=== PATIENT | female | born 1965 | race Caucasian/White ===

== ENCOUNTER 2024-09-13 11:47 | Emergency (ER) | payer BC, SELFPAY ==
[2024-09-13] VITALS (9 sets, daily range): BP systolic 99–135; BP diastolic 52–71; PULSE 68–93; RESP 16–18; TEMP 36.9–37.8; O2SAT 92–96; BMI 38.2
--- NOTE | ~2024-09-13 | XR_ITS ---
EXAMINATION: XR CHEST CLINICAL INFORMATION: chest pain COMPARISON: None available. TECHNIQUE: Frontal view of the chest was obtained. FINDINGS: The lungs are expanded with a right parahilar soft tissue density overlying the hilum suggestive of mass or consolidation. Rest of the lungs are clear. The heart size and pulmonary vascularity is normal. There is moderate right para midline mid and lower dorsal spine spondylosis. XR/XR chest 1V IMPRESSION: Moderate size right parahilar soft tissue density. Mass versus consolidation. Consider CT chest with IV contrast Electronically signed by: Waqar Lee MD 09/13/2024 01:11 PM EST
--- NOTE | ~2024-09-13 | CT_ITS ---
CLINICAL HISTORY: cough, fever ?PNA vs mass on CXR CT chest with IV contrast. COMPARISON: XR chest dated 09/13/24 at 12:45 EST FINDINGS: Visualized thyroid is unremarkable. No supraclavicular or axillary lymphadenopathy. Main pulmonary artery is enlarged measuring up to 3.0 cm. This can be associated with pulmonary hypertension. Aortic annular calcifications. No pericardial effusion. Normal esophagus. Multiple prominent mediastinal and right hilar lymph nodes. For example right hilar lymph node measuring 1.5 cm. No pleural effusion. Consolidation within the superior segment of the right lower lobe with air bronchograms small amount of adjacent ground-glass. Trachea and central airways are clear. No significant bronchial wall thickening. No bronchiectasis. Cholecystectomy. Flowing marginal osteophytes present throughout the thoracic spine. No acute fracture or suspicious bone lesion. IMPRESSION: 1. Right lower lobe pneumonia. Recommend following to resolution. 2. Prominent mediastinal and right hilar lymph nodes, likely reactive. This document has been electronically signed by: Redd Dang MD on 09/13/2024 16:52:54
--- NOTE | 2024-09-13 11:50 | ECG_ITS ---
Test Reason : CHEST PAIN Blood Pressure : / mmHG Vent. Rate : 088 BPM Atrial Rate : 088 BPM P-R Int : 132 ms QRS Dur : 084 ms QT Int : 362 ms P-R-T Axes : 052 019 023 degrees QTc Int : 438 ms Sinus rhythm with Premature supraventricular complexes ST & T wave abnormality, consider anterior ischemia Abnormal ECG No previous ECGs available Referred By: Generic ED Physician Electronically Signed By:RICO GURROLA MD
--- NOTE | 2024-09-13 11:56 | ED.GENADULT ---
HPI - General Adult General Chief complaint: Chest Pain Stated complaint: CP, vomiting Time Seen by Provider: 09/13/24 14:50 Source: patient and family () Mode of arrival: ambulatory Limitations: no limitations History of Present Illness ED Provider: USHA MILLER PA-C HPI narrative: 59 year old female with pmhx significant for pneumonia, HTN, HLD, depression, celiac, hypothyroidism, GERD presents to the ED today for evaluation of cough with green/yellow sputum x4 days. Also endorses fevers, TMAX 101.F last night. She reports pinching left sided chest pain which began last night, worse with coughing. She admits this makes her feel short of breath. Denies hemoptysis. Admits to working in healthcare. No recent travel or long car rides. Denies current/ history of tobacco use. Denies asthma/ COPD. Not on home O2. Related Data Previous Rx's ?Medication ?Instructions ?Recorded azithromycin 250 mg tablet See Rx Instructions PO .COMPLEX #6 09/13/24 tabs doxycycline monohydrate 100 mg 100 mg PO BID 7 days #14 caps 09/13/24 capsule guaifenesin 200 mg tablet 200 mg PO TID PRN cough #10 tabs 09/13/24 prednisone 20 mg tablet 20 mg PO DAILY 4 days #4 tabs 09/13/24 Allergies Allergy/AdvReac Type Severity Reaction Status Date / Time gluten Allergy Nausea and Verified 09/13/24 11:58 Vomiting Review of Systems Review of Systems: Constitutional: No fever, chills, fatigue, night sweats, weight changes ENT/Mouth: No ear pain, hearing loss, nasal congestion, sinus pain, rhinorrhea, sore throat Eyes: No eye pain, swelling, redness, vision changes, discharge Cardio: No palpitations, CHAMBERS, orthopnea, peripheral edema, +chest pain Pulm: No SOB, wheezing, dyspnea, hemoptysis, +productive cough GI: No nausea, vomiting, hematemesis, abdominal pain, diarrhea, constipation, hematochezia, melena : No irregular bleeding, dysuria, frequency, urgency, hesitancy, hematuria, flank pain, urinary flow changes, urinary incontinence or retention MSK: No back pain, neck pain, joint pain, myalgias Skin: No lesions, rashes Neuro: No weakness, numbness, paresthesias, LOC, dizziness, headache Psych: No anxiety/panic, depression, SI/HI, AH/VH All other systems reviewed and are negative. [facility] Past Medical History Attestation statement: The following information was validated with the patient. Source: old records reviewed and nursing notes reviewed Social History Social History Use of substances other than those prescribed or required for medical reasons: No Advance Directives: Yes Advance Directives Information Provided: No Advance Directives on File: No Do you have a plan to hurt others: No Plan Physical Exam ED Vital Signs: Vital Signs - 24 hr 09/13/24 11:56 09/13/24 13:08 09/13/24 16:10 Temperature 99.8 F 99.9 F 100.0 F Pulse Rate 93 83 86 Respiratory Rate 18 16 16 Blood Pressure 135/67 127/71 120/65 Pulse Oximetry 94 92 94 Oxygen Delivery Method Room Air Room Air 09/13/24 17:21 09/13/24 17:58 Temperature 99.0 F Pulse Rate 81 Respiratory Rate 16 Blood Pressure 131/67 Pulse Oximetry 95 96 Oxygen Delivery Method Room Air BMI result Body Mass Index 38.2 low grade fever, vitals otherwise wnl General: Well appearing, in no acute distress. Skin: Warm, dry, intact. No rashes or lesions. Head: Normocephalic, atraumatic. EENT: Hearing is intact b/l. Conjunctiva clear. PERRLA. EOM intact. Moist mucous membranes.? Neck: Supple without LAD Cardiac: Chest wall symmetric. RRR Lungs: Normal respiratory effort without accessory muscle use. congested cough. CTA bilaterally? Abdomen: Soft, non-tender, non-distended. No rebound tenderness or guarding. Positive BS x4. Back: No midline spinous or paraspinal tenderness. No step off deformity. Ext: Upper and lower extremities atraumatic, without tenderness, deformity, swelling or erythema. Full ROM throughout. no calf tenderness. no pitting edema. Neuro: AOx3. Normal speech. Ambulating with steady gait. Psych: Appropriate mood and affect. Responds appropriately to questions. 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 Last night developed pinching L sided chest pain worse with coughing. Green sputum produced with 101.3 last night. 2/10 chest pain. Noprior cardiac issues or work up. Stress test in 2018 normal. Not a smoker. At this time labs, CXR, EKG, troponin. All records at [facility] - will obtain EKG. Pos family hx of ACS in brother and mom - brother was 56. this is a RAPID medical screening exam the rest of the history and physical exam is to be done by the main provider. Reevaluation(s) Reevaluation #1: 4662 -- CBC without leukocytosis. Left shift. No anemia. H&H stable. Chemistry without acute electrolyte abnormality requiring intervention. Random glucose 121, delta troponin flat x2. Liver function baseline. Lipase WNL. She tested negative for COVID, flu, RSV. I reviewed EKG obtained at [facility] on 05/23/2023 which shows normal sinus rhythm with a rate of 70 beats per minute. No evidence of acute ischemic changes or ST elevations. EKG today shows sinus rhythm with premature supraventricular complexes with a rate of 88 beats per minute. No acute ischemic changes or ST elevations. Initial chest x-ray showing moderate size right perihilar soft tissue density ? mass versus consolidation. I did obtain CT chest with contrast which shows a right lower lobe pneumonia with prominent mediastinal and right hilar lymph nodes, likely reactive. > will give patient dose of antibiotics in the ED (doxycycline, azithromycin). > patient is satting 92-94% on room air. She does not require oxygen at home. States this is not her baseline. Likely secondary to pneumonia however will obtain ambulatory pulse ox to assess further. IV Solu-Medrol ordered. > Toradol given for pain. tylenol ordered for fever 1740 -- oxygen saturation 96% during ambulation. No concern for hypoxia secondary to pneumonia. IV abx running. plan to discharge patient home w/ doxy and azithro for CAP. prednisone and guaifenesin sent to pharmacy for symptoms. Medications Administered Discontinued Medications Generic Name Dose Route Start Last Admin Trade Name Freq PRN Reason Stop Dose Admin Acetaminophen 975 mg 09/13/24 17:05 09/13/24 17:40 Acetaminophen 325 Mg Tablet PO 09/13/24 17:06 975 mg ONCE ONE Administration Azithromycin 500 mg/ Sodium 250 mls @ 125 mls/hr 09/13/24 17:02 09/13/24 21:38 Chloride IV 09/13/24 19:01 Infused ONCE ONE Infusion Doxycycline Hyclate 100 mg/ 250 mls @ 166.67 mls/hr 09/13/24 17:02 09/13/24 19:25 Sodium Chloride IV 09/13/24 18:31 Infused ONCE ONE Infusion Iohexol 100 ml 09/13/24 16:27 09/13/24 16:27 Iohexol 350 Mg/Ml 100 Ml Infus..Btl IV 09/13/24 16:28 65 ml ONCE ONE Administration Ketorolac Tromethamine 15 mg 09/13/24 15:07 09/13/24 15:14 Ketorolac Tromethamine 15 Mg/Ml Vial IVPUSH 09/13/24 15:08 15 mg ONCE ONE Administration Methylprednisolone Sodium Succinate 125 mg 09/13/24 17:03 09/13/24 17:40 Methylprednisolone Sod Succ 125 Mg/2 Ml Vial IVPUSH 09/13/24 17:04 125 mg ONCE ONE Administration Medical Decision Making Medical Decision Making MDM Narrative: 59 year old female with pmhx significant for pneumonia, HTN, HLD, depression, celiac, hypothyroidism, GERD presents to the ED today for evaluation of cough with green/yellow sputum x4 days. Vital signs stable. Low-grade temp of 99.9?F. She is nontoxic appearing and in NAD. No noted respiratory distress. Congested cough. No tripoding. No increased effort of breathing. Lungs CTA bilaterally without adventitious breath sounds. Tender to palpation along posterior chest wall without palpable deformity or crepitus. History without high risk features (not substernal, no exertional component, not relieved with rest).? Minimal CAD risk factors with negative stress test in 2018.? Exam without evidence of volume overload. EKG without signs of active ischemia. Given the timing of pain to ED presentation, plan to send delta troponin to evaluate for NSTEMI. Differential diagnosis includes anemia, electrolyte abnormality, pneumonia, bronchitis, viral syndrome, arrhythmia, lung mass. Low suspicion for PE, pneumothorax, thoracic aortic dissection, cardiac effusion or tamponade Plan: labs, troponin, EKG, CXR, pain control, reassessment Differential Diagnosis Differential Diagnoses: The differential diagnosis associated with the presentation includes as above. Admission/Observation Consideration of admission/observation: Escalation of care including admission/observation considered Admission considered on presentation. Lab Data MDM Lab Attestation statement: I reviewed the patient's lab results. As above 09/13/24 12:14 09/13/24 12:14 Labs: Lab Results 09/13/24 09/13/24 09/13/24 Range/Units 12:14 12:16 14:25 WBC 9.0 (4.8-10.8) X10*3/uL RBC 4.54 (4.20-5.50) X10*6/uL Hgb 12.9 (12.0-16.0) g/dl Hct 38.4 (37.0-47.0) % MCV 84.6 (80.0-98.0) fL MCH 28.4 (27.0-33.0) pg MCHC 33.6 (31.0-35.0) g/dl RDW 14.2 (11.0-16.0) % Plt Count 126 L (160-400) X10*3/uL MPV 11.6 (9.4-12.3) fL Immature Gran % (Auto) 0.3 (0.0-0.4) % Neut % (Auto) 87.0 H (45-73) % Lymph % (Auto) 7.0 L (20-40) % Morgan % (Auto) 5.4 (2-11) % Eos % (Auto) 0.0 (0-4) % Baso % (Auto) 0.3 (0-2) % Lymph # (Auto) 0.6 L (1.2-4.9) X10*3/uL Morgan # (Auto) 0.5 (0.1-1.2) X10*3/uL Eos # (Auto) 0.0 (0.0-0.4) X10*3/uL Baso # (Auto) 0.0 (0.0-0.2) X10*3/uL Abs Immat Gran (auto) 0.03 (0.00-0.03) X10*3/uL Absolute Neuts (auto) 7.8 (2.0-8.3) x10*3/uL Absolute Nucleated RBC 0.000 (0.0-0.012) X10*3/uL Nucleated RBC % (auto) 0.0 (0.0-0.2) /100WBC PT 13.4 H (10.9-12.4) SEC INR 1.2 H (0.9-1.1) Sodium 137 (135-145) mmol/L Potassium 3.7 (3.3-5.1) mmol/L Chloride 103 (96-108) mmol/L Carbon Dioxide 24 (22-29) mmol/L Anion Gap 14 (12-20) BUN 11 (9-16) mg/dL Creatinine 0.86 (0.5-1.4) mg/dL Estim Creat Clear Calc 71.7 Estimated GFR > 60 Random Glucose 121 H (60-115) mg/dL Calcium 8.9 (8.4-10.2) mg/dL Magnesium 2.0 (1.6-2.6) mg/dL Total Bilirubin 0.6 (0.0-1.0) mg/dL Direct Bilirubin 0.2 (0.0-0.5) mg/dL AST 51 H (5-31) U/L ALT 30 (0-31) U/L Alkaline Phosphatase 104 (39-117) U/L Troponin I High Sens < 2.7 < 2.7 (<3.5-17.0) ng/L B-Natriuretic Peptide 54 (<100) pg/mL Total Protein 8.0 (6.5-8.0) g/dL Albumin 3.8 (3.5-5.0) g/dL Lipase 15 (8-78) U/L Urine Color Urine Appearance Urine pH (5.0-9.0) Ur Specific [place] (1.005-1.025) Urine Protein (Neg-Trace) mg/dL Urine Glucose (UA) (Negative) mg/dL Urine Ketones (Negative) mg/dL Urine Blood (Negative) Urine Nitrite (Negative) Ur Leukocyte Esterase (Negative) Urine RBC (0-2) /HPF Urine WBC (0-5) /HPF Ur Squamous Epith Cells (0-2) /HPF Ur Transition Epith Cell Urine Bacteria (None Seen) Hyaline Casts (0-2) /LPF Influenza Type A (PCR) NEGATIVE (Negative) Influenza Type B (PCR) NEGATIVE (Negative) RSV RNA Qual (PCR) NEGATIVE (Negative) SARS-CoV-2 RNA (RT-PCR) NEGATIVE (Negative) 01/02/25 Range/Units 19:25 WBC (4.8-10.8) X10*3/uL RBC (4.20-5.50) X10*6/uL Hgb (12.0-16.0) g/dl Hct (37.0-47.0) % MCV (80.0-98.0) fL MCH (27.0-33.0) pg MCHC (31.0-35.0) g/dl RDW (11.0-16.0) % Plt Count (160-400) X10*3/uL MPV (9.4-12.3) fL Immature Gran % (Auto) (0.0-0.4) % Neut % (Auto) (45-73) % Lymph % (Auto) (20-40) % Morgan % (Auto) (2-11) % Eos % (Auto) (0-4) % Baso % (Auto) (0-2) % Lymph # (Auto) (1.2-4.9) X10*3/uL Morgan # (Auto) (0.1-1.2) X10*3/uL Eos # (Auto) (0.0-0.4) X10*3/uL Baso # (Auto) (0.0-0.2) X10*3/uL Abs Immat Gran (auto) (0.00-0.03) X10*3/uL Absolute Neuts (auto) (2.0-8.3) x10*3/uL Absolute Nucleated RBC (0.0-0.012) X10*3/uL Nucleated RBC % (auto) (0.0-0.2) /100WBC PT (10.9-12.4) SEC INR (0.9-1.1) Sodium (135-145) mmol/L Potassium (3.3-5.1) mmol/L Chloride (96-108) mmol/L Carbon Dioxide (22-29) mmol/L Anion Gap (12-20) BUN (9-16) mg/dL Creatinine (0.5-1.4) mg/dL Estim Creat Clear Calc Estimated GFR Random Glucose (60-115) mg/dL Calcium (8.4-10.2) mg/dL Magnesium (1.6-2.6) mg/dL Total Bilirubin (0.0-1.0) mg/dL Direct Bilirubin (0.0-0.5) mg/dL AST (5-31) U/L ALT (0-31) U/L Alkaline Phosphatase (39-117) U/L Troponin I High Sens (<3.5-17.0) ng/L B-Natriuretic Peptide (<100) pg/mL Total Protein (6.5-8.0) g/dL Albumin (3.5-5.0) g/dL Lipase (8-78) U/L Urine Color Dark Yellow Urine Appearance Clear Urine pH 6.0 (5.0-9.0) Ur Specific [place] >= 1.030 H (1.005-1.025) Urine Protein 100 (2+) H (Neg-Trace) mg/dL Urine Glucose (UA) Negative (Negative) mg/dL Urine Ketones 15 (Negative) mg/dL Urine Blood Large (3+) H (Negative) Urine Nitrite Negative (Negative) Ur Leukocyte Esterase Negative (Negative) Urine RBC 6-10 H (0-2) /HPF Urine WBC 0-5 (0-5) /HPF Ur Squamous Epith Cells 3-5 (0-2) /HPF Ur Transition Epith Cell Present Urine Bacteria Trace (None Seen) Hyaline Casts 0-2 (0-2) /LPF Influenza Type A (PCR) (Negative) Influenza Type B (PCR) (Negative) RSV RNA Qual (PCR) (Negative) SARS-CoV-2 RNA (RT-PCR) (Negative) Independent Interpretation I performed an independent interpretation of an: EKG, Plain X-Ray and CT Scan Interpretation: EKG showing sinus rhythm with premature supraventricular complexes Chest x-ray showing right perihilar density CT chest w/ right lower lobe consolidation Radiology Impression Discussion of test interpretation with radiology: I have reviewed the radiologist's reading. Radiologist Impression: Ordering Physician: Nikole Hoang DO Date of Service: 09/13/24 Procedure(s): XR chest 1V Accession Number(s): [id number] cc: Nikole Hoang DO; Dixon Spicer MD~ EXAMINATION: XR CHEST CLINICAL INFORMATION: chest pain COMPARISON: None available. TECHNIQUE: Frontal view of the chest was obtained. FINDINGS: The lungs are expanded with a right parahilar soft tissue density overlying the hilum suggestive of mass or consolidation. Rest of the lungs are clear. The heart size and pulmonary vascularity is normal. There is moderate right para midline mid and lower dorsal spine spondylosis. XR/XR chest 1V IMPRESSION: Moderate size right parahilar soft tissue density. Mass versus consolidation. Consider CT chest with IV contrast Electronically signed by: Waqar Lee MD 09/13/2024 01:11 PM EST RP Ordering Physician: Usha Miller Date of Service: 09/13/24 Procedure(s): CT chest w IV con Accession Number(s): [id number] cc: Usha Miller; Dixon Spicer MD~ Report Number: [id number]: Total DLP = 423.00 mGy-cm CLINICAL HISTORY: cough, fever ?PNA vs mass on CXR CT chest with IV contrast. COMPARISON: XR chest dated 09/13/24 at 12:45 EST FINDINGS: Visualized thyroid is unremarkable. No supraclavicular or axillary lymphadenopathy. Main pulmonary artery is enlarged measuring up to 3.0 cm. This can be associated with pulmonary hypertension. Aortic annular calcifications. No pericardial effusion. Normal esophagus. Multiple prominent mediastinal and right hilar lymph nodes. For example right hilar lymph node measuring 1.5 cm. No pleural effusion. Consolidation within the superior segment of the right lower lobe with air bronchograms small amount of adjacent ground-glass. Trachea and central airways are clear. No significant bronchial wall thickening. No bronchiectasis. Cholecystectomy. Flowing marginal osteophytes present throughout the thoracic spine. No acute fracture or suspicious bone lesion. IMPRESSION: 1. Right lower lobe pneumonia. Recommend following to resolution. 2. Prominent mediastinal and right hilar lymph nodes, likely reactive. This document has been electronically signed by: Redd Dang MD on 09/13/2024 16:52:54 Independent Historian Clinical information obtained from an independent historian. History obtained from or confirmed by: Spouse () External Record Review External record reviewed: Inpatient record, Office record, Outpatient record, Prior outpatient labs, Prior outpatient radiology, Primary care record and Outside ED record Prescription Management I considered prescription management with: Antibiotic (Doxy, azithromycin) Social Determinants Patient?s care significantly limited by Social Determinants of Health including: Other Social Determinant of Health Critical Care Time Critical Care Time Critical Care Time: No Discharge Plan Discharge Clinical Impression: Community acquired pneumonia Patient Disposition: Home, Self-Care Instructions: Community Acquired Pneumonia (ED) Additional Instructions: You were evaluated in the ED today for chest discomfort and cough. Your blood work today is reassuring. Both your chest x-ray and CT scan of your chest show pneumonia within your right lung. You were given a dose of antibiotics in ED today along with a dose of steroids to help with your breathing. Azithromycin is an antibiotic that has been sent to your pharmacy for treatment. Doxycycline is a 2nd antibiotic that has been sent to your pharmacy for treatment. Take both of these as prescribed and to completion. Prednisone as a steroid that has been sent to your pharmacy. Take your next dose tomorrow as you already received a dose in the ED today. Guaifenesin cough medicine has been sent to your pharmacy for you to take as needed for cough. I recommend you take 600mg ibuprofen every 6 hours or Tylenol 650mg every 6 hours as needed for pain/fever. If needed, you can alternate these medications so that you take one medication every 3 hours. For example, at noon take ibuprofen, then at 3pm take Tylenol, then at 6pm take ibuprofen. I recommend close follow up with your primary care provider for repeat chest x-ray in 2-3 weeks to ensure resolution of pneumonia. Return to the ED with new or worsening symptoms. In the case of an emergency call 911. Prescriptions: New azithromycin 250 mg tablet See Rx Instructions .ROUTE .COMPLEX Qty: 6 0RF Rx Instructions: For 250 mg dose pack: take 500 mg today (day 1), then 250 mg for 4 days (days 2-5) doxycycline monohydrate 100 mg capsule 100 mg PO BID 7 Days Qty: 14 0RF guaifenesin 200 mg tablet 200 mg PO TID PRN (Reason: cough) Qty: 10 0RF prednisone 20 mg tablet 20 mg PO DAILY 4 Days Qty: 4 0RF Referrals: [facility] Family Medicine [Provider Group] [facility] [Provider Group] [facility] [Provider Group] Interventions: ED Discharge Assessment Last Done: 09/13/24 21:39 Discharge Date/Time: 09/13/24 21:40 Print Language: Indonesian
[2024-09-13 12:19] LABS: MANUAL DIFF FLAG NO
[2024-09-13 12:24] LABS: Basophils Percent Auto 0.3 % (0-2); Hematocrit 38.4 % (37.0-47.0); Hemoglobin 12.9 g/dl (12.0-16.0); Imm Gran Abs Auto 0.03 X10*3/uL (0.00-0.03); Imm Gran Pct Auto 0.3 % (0.0-0.4); Lymphocytes Absolute Auto 0.6 X10*3/uL (1.2-4.9); Mean Corpuscular HGB Conc 33.6 g/dl (31.0-35.0); Mean Corpuscular Hemoglobin 28.4 pg (27.0-33.0); Mean Corpuscular Volume 84.6 fL (80.0-98.0); Mean Platelet Volume 11.6 fL (9.4-12.3); Monocytes Absolute Auto 0.5 X10*3/uL (0.1-1.2); Monocytes Percent Auto 5.4 % (2-11); Neutrophils Absolute Auto 7.8 x10*3/uL (2.0-8.3); Platelet Count 126 X10*3/uL (160-400); Red Blood Count 4.54 X10*6/uL (4.20-5.50); Red Cell Distribution Width 14.2 % (11.0-16.0)
[2024-09-13 12:34] LABS: INTERNATIONAL NORM RATIO 1.2 (0.9-1.1); Prothrombin Time 13.4 SEC (10.9-12.4)
[2024-09-13 12:37] LABS: Alanine Aminotransferase 30 U/L (0-31); Albumin Level 3.8 g/dL (3.5-5.0); Alkaline Phosphatase 104 U/L (39-117); Anion Gap 14 (12-20); Aspartate Amino Transferase 51 U/L (5-31); Bilirubin Direct 0.2 mg/dL (0.0-0.5); Bilirubin Total 0.6 mg/dL (0.0-1.0); Blood Urea Nitrogen 11 mg/dL (9-16); Calcium 8.9 mg/dL (8.4-10.2); Carbon Dioxide 24 mmol/L (22-29); Chloride 103 mmol/L (96-108); Creatinine Clr Calc Pharmacy 71.7; Estimated Glomerular Filt Rate > 60; Glucose Random 121 mg/dL (60-115); Lipase 15 U/L (8-78); Potassium 3.7 mmol/L (3.3-5.1); Sodium 137 mmol/L (135-145)
[2024-09-13 12:46] LABS: Troponin-I High Sensitivity < 2.7 ng/L (<3.5-17.0)
[2024-09-13 12:49] LABS: B Type Natriuretic Peptide 54 pg/mL (<100)
--- OUTSIDE RECORDS SUMMARY | 2024-09-13 12:56 | XMS_ITS | Continuity of Care Document ---
Author Organization [facility] Address [address] [place] [address]- Care Team Providers Care Alternative Energy Engineer Name Role Phone Nayan MENDOZA, Dixon Antonio Primary Care Physician Encounter [facility] Date(s): 07/24/24 - 08/23/24 [facility] [address] [place], [place] [address] Encounter Type: Triage Allergies, Adverse Reactions, Alerts No Known Medication Allergies Immunizations Given and Recorded Vaccine Date Status Refusal Reason influenza virus vaccine, inactivated 1 06/22/24 Gi guy influenza virus vaccine, inactivated 07/01/23 Danie rded influenza virus vaccine, inactivated 06/16/21 Danie rded influenza virus vaccine, inactivated 06/16/20 Danie rded influenza virus vaccine, inactivated 06/28/19 Danie rded influenza virus vaccine, inactivated 06/23/18 Danie rded influenza virus vaccine, inactivated 06/23/17 Danie rded influenza virus vaccine, inactivated 06/23/16 Danie rded influenza virus vaccine, inactivated 09/18/14 Danie rded influenza virus vaccine, inactivated 06/26/13 Danie rded influenza virus vaccine, inactivated 07/10/10 Danie rded influenza virus vaccine, inactivated 06/19/09 Danie rded SARS-CoV-2(COVID-19)mRNA-LNP vac([id number]) 07/17/23 Recorded SARS-CoV-2 (COVID-19) mRNA-1273 vaccine 2 01/14/22 Recorded SARS-CoV-2 (COVID-19) mRNA-1273 vaccine 07/17/21 R ecorded SARS-CoV-2 (COVID-19) mRNA-1273 vaccine 10/20/20 R ecorded SARS-CoV-2 (COVID-19) mRNA-1273 vaccine 09/22/20 R ecorded tetanus/diphtheria/pertussis, acel(Tdap) 03/09/17 Recorded tetanus/diphtheria/pertussis, acel(Tdap) 01/13/07 Recorded pneumococcal 23-valent vaccine 06/12/14 Recorded hepatitis B adult vaccine 01/16/10 Recorded hepatitis B adult vaccine 04/14/09 Recorded hepatitis B adult vaccine 03/06/09 Recorded influ virus vac, H1N1, inactive(oldterm) 06/27/09 Recorded 1Result Comment: [facility]: [id number] 2Result Comment: [facility] 7111, [id number] Medications amLODIPine 5 mg oral tablet 1 tablet, By Mouth, Daily at bedtime, # 90 tablet, 1 Refills, Maintenance, 09/11/23 1:35:00 PM EST,[facility], 153, cm, 05/27/23 15:34:00 EDT, Height, 96.9, kg, 05/23/23 11:11:00 EDT, Dry Weight Start Date: 09/11/23 Status: Ordered Quantity: 90.0 Unit: tablet Repeat number: 2 clonazePAM 0.5 mg oral tablet 0.5-1 tablet, By Mouth, Daily at bedtime, PRN Anxiety, # 20 tablet, 0 Refills, Maintenance, 11/21/2409:00:00 AM EDT, Tablet, [facility], Partial fill upon patient request if the prescription is for a schedule II opioid drug., 153, cm, 11/22/23 9:43:00 EDT, Height, 94.3, kg, 11/22/23 9:43:00 EDT, Dry Weight Start Date: 11/22/23 Status: Ordered Quantity: 20.0 Unit: tablet Repeat number: 1 estradiol 0.5 mg oral tablet 1 tablet = 0.5 mg, By Mouth, Daily, # 30 tablet, 0 Refills, Maintenance, 04/10/21 3:14:00 PM EDT, Tablet, Partial fill upon patient request if the prescription is for a schedule II opioid drug. Start Date: 04/10/21 Status: Ordered Quantity: 30.0 Unit: tablet Repeat number: 1 folic acid 1 mg oral tablet 1, tablet, By Mouth, Daily, # 30 tablet, Refills 3, Maintenance, 04/16/24 5:38:00 PM EDT, Route to Pharmacy Electronically, [facility], 153, cm, 01/23/24 16:32:00 EDT, Height, 94.3,kg, 11/22/23 9:43:00 EDT, Dry Weight Start Date: 04/16/24 Status: Ordered Quantity: 30.0 Unit: tablet Repeat number: 1 losartan 50 mg oral tablet 1 tablet, By Mouth, Daily, # 90 tablet, 1 Refills, Maintenance, 03/13/24 3:15:00 PM EDT, [facility], 153, cm, 01/23/24 16:32:00 EDT, Height, 94.3, kg, 11/22/23 9:43:00 EDT, Dry Weight Start Date: 03/13/24 Status: Ordered Quantity: 90.0 Unit: tablet Repeat number: 1 rosuvastatin 5 mg oral tablet 1 tablet, By Mouth, Daily at bedtime, # 90 tablet, 1 Refills, Maintenance, 07/24/24 8:10:00 AM EST,[facility], 153, cm, 07/14/24 9:08:00 EDT, Height, 94.3, kg, 06/22/24 15:53:00 EDT, Dry Weight Start Date: 07/24/24 Status: Ordered Quantity: 90.0 Unit: tablet Repeat number: 1 sertraline 100 mg oral tablet 2 tablet, By Mouth, Daily, # 180 tablet, 1 Refills, Maintenance, 05/08/24 11:34:00 AM EDT, [facility], 153, cm, 01/23/24 16:32:00 EDT, Height, 94.3, kg, 11/22/23 9:43:00 EDT, Dry Weight Start Date: 05/08/24 Status: Ordered Quantity: 180.0 Unit: tablet Repeat number: 2 Synthroid 0.05 mg oral tablet 1 tablet, By Mouth, Daily in AM, DOSE INCREASE (THYROID STIMULATING HORMONE., # 90 tablet, 1 Refills, Maintenance, 07/24/24 8:10:00 AM EST, [facility], 153, cm, 07/14/24 9:08:00 EDT, Height, 94.3, kg, 06/22/24 15:53:00 EDT, Dry Weight Start Date: 07/24/24 Status: Ordered Quantity: 90.0 Unit: tablet Repeat number: 1 Vitamin D2 2000 intl units oral capsule 1 capsule = 50 mcg, By Mouth, Daily, with food, # 90 capsule, 0 Refills, Maintenance, 11/28/23 2:06:00 PM EDT, Capsule, [id number], Partial fill upon patient request if the prescription is for a schedule II opioid drug., 153, cm, 11/22/23 9:43:00 EDT, Height, 94.3, kg, 11/22/23 9:43:00 EDT, Dry Weight Start Date: 11/28/23 Status: Ordered Quantity: 90.0 Unit: capsule Repeat number: 1 Problem List Condition Confirmation Course Effective Dates Status H ealth Status Informant Asthma Confirmed Active Celiac disease Confirmed Active GERD (gastroesophageal reflux disease) Confirmed Active Generalized anxiety disorder Confirmed Active Jaun's thyroiditis 1 Confirmed Active Hyperlipidemia Confirmed Active Hypertension Confirmed Active Osteoarthritis of right knee Confirmed Active Major depressive disorder, recurrent, moderate Confirmed Active Severe obesity Confirmed Active Subclinical hypothyroidism Confirmed Active Vitamin D deficiency Confirmed Active 1+antithyroglobulin Ab 08/2023 Social History Social History Type Response Smoking Status Never (less than 100 in lifetime) entered on: 04/10/21 Sex Sex Representation Female (finding) Patient Care team information Care Team Personnel Name: Dixon Spicer MD Position: S Physician - Primary Care Member Role: PCP Address: [address] [place] [address] Adult [facility] Pediatric Medicine [address] Telecom: Care Team Related Persons Name: NKECHI TAYLOR Name: MENDEZ PEREZ Insurance Providers Guarantor name: SHEREE PEREZ Health Plan Information #: 1 Payer: HMO BLUE IN NETWORK Member Number: NA Policy Number: NA Group Number: NA
--- OUTSIDE RECORDS SUMMARY | 2024-09-13 12:56 | XMS_ITS | Continuity of Care Document ---
Author Organization [facility] Address [address] [place] [address]- Care Team Providers Care Support Clerk Name Role Phone Nayna MENDOZA, Dixon Antonio Primary Care Physician [phone] [place] [facility] Date(s[place] 07/14/24 - 08/13/24 [facility] [address] [place] [address]- Encounter Type: Triage Allergies, Adverse Reactions, Alerts [...] virus vaccine, inactivated 06/19/09 Danie rded SARS-CoV-2(COVID-19)mRNA-LNP vac([id number]) 07/17/23 Recorded SARS-CoV-2 (COVID-19) mRNA-1273 vaccine 2 [...] vac, H1N1, inactive(oldterm) 06/27/09 Recorded 1Result Comment: [facility]: [id number] 2Result Comment: [facility] 7111, [id number] Medications amLODIPine 5 mg oral tablet 1 tablet, By Mouth, Daily at bedtime, # 90 tablet, 1 Refills, Maintenance, 09/11/23 1:35:00 PM EST,[facility], 153, cm, 05/27/23 15:34:00 EDT, Height, 96.9, kg, 05/23/23 11:11:00 EDT, Dry Weight Start Date: 09/11/23 Status: Ordered Quantity: 90.0 Unit: tablet Repeat number: 2 clonazePAM 0.5 mg oral tablet 0.5-1 tablet, By Mouth, Daily at bedtime, PRN Anxiety, # 20 tablet, 0 Refills, Maintenance, 11/21/2409:00:00 AM EDT, Tablet, [facility], Partial fill upon patient [...] 5:38:00 PM EDT, Route to Pharmacy Electronically, [facility], 153, cm, 01/23/24 16:32:00 EDT, Height, 94.3,kg, 11/22/23 9:43:00 EDT, Dry Weight Start Date: 04/16/24 Status: Ordered Quantity: 30.0 Unit: tablet Repeat number: 1 losartan 50 mg oral tablet 1 tablet, By Mouth, Daily, # 90 tablet, 1 Refills, Maintenance, 03/13/24 3:15:00 PM EDT, [facility], 153, cm, 01/23/24 16:32:00 EDT, Height, 94.3, kg, 11/22/23 9:43:00 EDT, Dry Weight Start Date: 03/13/24 Status: Ordered Quantity: 90.0 Unit: tablet Repeat number: 1 rosuvastatin 5 mg oral tablet 1 tablet, By Mouth, Daily at bedtime, # 90 tablet, 1 Refills, Maintenance, 07/24/24 8:10:00 AM EST,[facility], 153, cm, 07/14/24 9:08:00 EDT, Height, 94.3, kg, 06/22/24 15:53:00 EDT, Dry Weight Start Date: 07/24/24 Status: Ordered Quantity: 90.0 Unit: tablet Repeat number: 1 sertraline 100 mg oral tablet 2 tablet, By Mouth, Daily, # 180 tablet, 1 Refills, Maintenance, 05/08/24 11:34:00 AM EDT, [facility], 153, cm, 01/23/24 16:32:00 EDT, Height, 94.3, kg, 11/22/23 9:43:00 EDT, Dry Weight Start Date: 05/08/24 Status: Ordered Quantity: 180.0 Unit: tablet Repeat number: 2 Synthroid 0.05 mg oral tablet 1 tablet, By Mouth, Daily in AM, DOSE INCREASE (THYROID STIMULATING HORMONE., # 90 tablet, 1 Refills, Maintenance, 07/24/24 8:10:00 AM EST, [facility], 153, cm, 07/14/24 9:08:00 EDT, Height, 94.3, kg, 06/22/24 15:53:00 EDT, Dry Weight Start Date: 07/24/24 Status: Ordered Quantity: 90.0 Unit: tablet Repeat number: 1 Vitamin D2 2000 intl units oral capsule 1 capsule = 50 mcg, By Mouth, Daily, with food, # 90 capsule, 0 Refills, Maintenance, 11/28/23 2:06:00 PM EDT, Capsule, [id number], Partial fill upon patient request if the [...] - Primary Care Member Role: PCP Address: [address] [place] [address] Adult & Pediatric Medicine [address] Telecom: Care Team Related Persons Name: NKECHI TAYLOR Name: MENDEZ PEREZ Insurance Providers Guarantor name: SHEREE PEREZ Health Plan Information #: 1 Payer: O BLUE IN NETWORK Member Number: NA Policy Number: NA Group Number: NA
--- OUTSIDE RECORDS SUMMARY | 2024-09-13 12:56 | XMS_ITS | Continuity of Care Document ---
Author Organization [facility] Address [address] [place] [address]- Care Team Providers Care Lens Examiner Name Role Phone Nayan MENDOZA, Dixon Antonio Primary Care Physician Encounter [facility] Date(s): 07/14/24 - 08/13/24 [facility] [address] [place] [address]- Attending Physician: AdmWilliam benoit Admitting Physician: AdmtrWilliam Referring Physician: Admtr, Ar8 Encounter Type: Triage Allergies, Adverse Reactions, Alerts [...] virus vaccine, inactivated 06/19/09 Danie rded SARS-CoV-2(COVID-19)mRNA-LNP vac([id number]) 07/17/23 Recorded SARS-CoV-2 (COVID-19) mRNA-1273 vaccine 2 [...] vac, H1N1, inactive(oldterm) 06/27/09 Recorded 1Result Comment: [facility]: [id number] 2Result Comment: [facility] 7111, [id number] Medications amLODIPine 5 mg oral tablet 1 tablet, By Mouth, Daily at bedtime, # 90 tablet, 1 Refills, Maintenance, 09/11/23 1:35:00 PM EST,[facility], 153, cm, 05/27/23 15:34:00 EDT, Height, 96.9, kg, 05/23/23 11:11:00 EDT, Dry Weight Start Date: 09/11/23 Status: Ordered Quantity: 90.0 Unit: tablet Repeat number: 2 clonazePAM 0.5 mg oral tablet 0.5-1 tablet, By Mouth, Daily at bedtime, PRN Anxiety, # 20 tablet, 0 Refills, Maintenance, 11/21/2409:00:00 AM EDT, Tablet, [facility], Partial fill upon patient request if [...] 5:38:00 PM EDT, Route to Pharmacy Electronically, [facility], 153, cm, 01/23/24 16:32:00 EDT, Height, 94.3,kg, 11/22/23 9:43:00 EDT, Dry Weight Start Date: 04/16/24 Status: Ordered Quantity: 30.0 Unit: tablet Repeat number: 1 losartan 50 mg oral tablet 1 tablet, By Mouth, Daily, # 90 tablet, 1 Refills, Maintenance, 03/13/24 3:15:00 PM EDT, [facility], 153, cm, 01/23/24 16:32:00 EDT, Height, 94.3, kg, 11/22/23 9:43:00 EDT, Dry Weight Start Date: 03/13/24 Status: Ordered Quantity: 90.0 Unit: tablet Repeat number: 1 rosuvastatin 5 mg oral tablet 1 tablet, By Mouth, Daily at bedtime, # 90 tablet, 1 Refills, Maintenance, 07/24/24 8:10:00 AM EST,[facility], 153, cm, 07/14/24 9:08:00 EDT, Height, 94.3, kg, 06/22/24 15:53:00 EDT, Dry Weight Start Date: 07/24/24 Status: Ordered Quantity: 90.0 Unit: tablet Repeat number: 1 sertraline 100 mg oral tablet 2 tablet, By Mouth, Daily, # 180 tablet, 1 Refills, Maintenance, 05/08/24 11:34:00 AM EDT, [facility], 153, cm, 01/23/24 16:32:00 EDT, Height, 94.3, kg, 11/22/23 9:43:00 EDT, Dry Weight Start Date: 05/08/24 Status: Ordered Quantity: 180.0 Unit: tablet Repeat number: 2 Synthroid 0.05 mg oral tablet 1 tablet, By Mouth, Daily in AM, DOSE INCREASE (THYROID STIMULATING HORMONE., # 90 tablet, 1 Refills, Maintenance, 07/24/24 8:10:00 AM EST, [facility], 153, cm, 07/14/24 9:08:00 EDT, Height, 94.3, kg, 06/22/24 15:53:00 EDT, Dry Weight Start Date: 07/24/24 Status: Ordered Quantity: 90.0 Unit: tablet Repeat number: 1 Vitamin D2 2000 intl units oral capsule 1 capsule = 50 mcg, By Mouth, Daily, with food, # 90 capsule, 0 Refills, Maintenance, 11/28/23 2:06:00 PM EDT, Capsule, [id number], Partial fill upon patient request if the [...] Team Personnel Name: Dixon Spicer MD Position: [facility] Physician - Primary Care Member Role: PCP Address: [address] [place] [address] Adult & Pediatric Medicine [address] Telecom: Care Team Related Persons Name: NKECHI TAYLOR Name: MENDEZ PEREZ Insurance Providers Guarantor name: SHEREE PEREZ Health Plan Information #: 1 Payer: HMO BLUE IN NETWORK Member Number: NA Policy Number: NA Group Number: NA
--- OUTSIDE RECORDS SUMMARY | 2024-09-13 12:56 | XMS_ITS | Continuity of Care Document ---
Author Organization [facility] Address [address] [place] [address]- Care Team Providers Care Shoe Cutter Name Role Phone Nayan MENDOZA, Dixon Antonio Primary Care Physician [phone] Encounter [facility] [place] Date(s): 07/19/24 - 08/18/24 [facility] [address] [place], [place] [address] Encounter Type: Triage Allergies, Adverse Reactions, [...] virus vaccine, inactivated 06/19/09 Danie rded SARS-CoV-2(COVID-19)mRNA-LNP vac([id number]) 07/17/23 Recorded SARS-CoV-2 (COVID-19) mRNA-1273 vaccine 2 [...] H1N1, inactive(oldterm) 06/27/09 Recorded 1Result Comment: [facility]: [id number] 2Result Comment: [facility] 7111, [id number] Medications amLODIPine 5 mg oral tablet 1 tablet, By Mouth, Daily at bedtime, # 90 tablet, 1 Refills, Maintenance, 09/11/23 1:35:00 PM EST,[facility], 153, cm, 05/27/23 15:34:00 EDT, Height, 96.9, kg, 05/23/23 11:11:00 EDT, Dry Weight Start Date: 09/11/23 Status: Ordered Quantity: 90.0 Unit: tablet Repeat number: 2 clonazePAM 0.5 mg oral tablet 0.5-1 tablet, By Mouth, Daily at bedtime, PRN Anxiety, # 20 tablet, 0 Refills, Maintenance, 11/21/2409:00:00 AM EDT, Tablet, [facility], Partial fill upon patient [...] 5:38:00 PM EDT, Route to Pharmacy Electronically, [facility], 153, cm, 01/23/24 16:32:00 EDT, Height, 94.3,kg, 11/22/23 9:43:00 EDT, Dry Weight Start Date: 04/16/24 Status: Ordered Quantity: 30.0 Unit: tablet Repeat number: 1 losartan 50 mg oral tablet 1 tablet, By Mouth, Daily, # 90 tablet, 1 Refills, Maintenance, 03/13/24 3:15:00 PM EDT, [facility], 153, cm, 01/23/24 16:32:00 EDT, Height, 94.3, kg, 11/22/23 9:43:00 EDT, Dry Weight Start Date: 03/13/24 Status: Ordered Quantity: 90.0 Unit: tablet Repeat number: 1 rosuvastatin 5 mg oral tablet 1 tablet, By Mouth, Daily at bedtime, # 90 tablet, 1 Refills, Maintenance, 07/24/24 8:10:00 AM EST,[facility], 153, cm, 07/14/24 9:08:00 EDT, Height, 94.3, kg, 06/22/24 15:53:00 EDT, Dry Weight Start Date: 07/24/24 Status: Ordered Quantity: 90.0 Unit: tablet Repeat number: 1 sertraline 100 mg oral tablet 2 tablet, By Mouth, Daily, # 180 tablet, 1 Refills, Maintenance, 05/08/24 11:34:00 AM EDT, [facility], 153, cm, 01/23/24 16:32:00 EDT, Height, 94.3, kg, 11/22/23 9:43:00 EDT, Dry Weight Start Date: 05/08/24 Status: Ordered Quantity: 180.0 Unit: tablet Repeat number: 2 Synthroid 0.05 mg oral tablet 1 tablet, By Mouth, Daily in AM, DOSE INCREASE (THYROID STIMULATING HORMONE., # 90 tablet, 1 Refills, Maintenance, 07/24/24 8:10:00 AM EST, [facility], 153, cm, 07/14/24 9:08:00 EDT, Height, 94.3, kg, 06/22/24 15:53:00 EDT, Dry Weight Start Date: 07/24/24 Status: Ordered Quantity: 90.0 Unit: tablet Repeat number: 1 Vitamin D2 2000 intl units oral capsule 1 capsule = 50 mcg, By Mouth, Daily, with food, # 90 capsule, 0 Refills, Maintenance, 11/28/23 2:06:00 PM EDT, Capsule, [facility][id number], Partial fill upon patient request if the [...] - Primary Care Member Role: PCP Address: [address] [place] [address] Adult & Pediatric Medicine [address] Telecom: Care Team Related Persons Name: NKECHI TAYLOR Name: MENDEZ PEREZ Insurance Providers Guarantor name: SHEREE PEREZ Health Plan Information #: 1 Payer: HMO BLUE IN NETWORK Member Number: NA Policy Number: NA Group Number: NA
--- OUTSIDE RECORDS SUMMARY | 2024-09-13 12:56 | XMS_ITS | Continuity of Care Document ---
Author Organization [facility] Address [address] [place] [address]- Care Team Providers Care Shellfish Manager Name Role Phone Nayan MENDOZA, Dixon Antonio Primary Care Physician Encounter [facility] [place] Date(s): 07/19/24 - 08/18/24 [facility] [address] [place], [place] [address] Encounter Type: Triage Allergies, Adverse Reactions, Alerts [...] virus vaccine, inactivated 06/19/09 Danie rded SARS-CoV-2(COVID-19)mRNA-LNP vac([id number]) 07/17/23 Recorded SARS-CoV-2 (COVID-19) mRNA-1273 vaccine 2 [...] vac, H1N1, inactive(oldterm) 06/27/09 Recorded 1Result Comment: [facility]: [id number] 2Result Comment: [facility] 7111, [id number] Medications amLODIPine 5 mg oral tablet 1 tablet, By Mouth, Daily at bedtime, # 90 tablet, 1 Refills, Maintenance, 09/11/23 1:35:00 PM EST,[facility], 153, cm, 05/27/23 15:34:00 EDT, Height, 96.9, kg, 05/23/23 11:11:00 EDT, Dry Weight Start Date: 09/11/23 Status: Ordered Quantity: 90.0 Unit: tablet Repeat number: 2 clonazePAM 0.5 mg oral tablet 0.5-1 tablet, By Mouth, Daily at bedtime, PRN Anxiety, # 20 tablet, 0 Refills, Maintenance, 11/21/2409:00:00 AM EDT, Tablet, [facility], Partial fill upon patient request if [...] 5:38:00 PM EDT, Route to Pharmacy Electronically, [facility], 153, cm, 01/23/24 16:32:00 EDT, Height, 94.3,kg, 11/22/23 9:43:00 EDT, Dry Weight Start Date: 04/16/24 Status: Ordered Quantity: 30.0 Unit: tablet Repeat number: 1 losartan 50 mg oral tablet 1 tablet, By Mouth, Daily, # 90 tablet, 1 Refills, Maintenance, 03/13/24 3:15:00 PM EDT, [facility], 153, cm, 01/23/24 16:32:00 EDT, Height, 94.3, kg, 11/22/23 9:43:00 EDT, Dry Weight Start Date: 03/13/24 Status: Ordered Quantity: 90.0 Unit: tablet Repeat number: 1 rosuvastatin 5 mg oral tablet 1 tablet, By Mouth, Daily at bedtime, # 90 tablet, 1 Refills, Maintenance, 07/24/24 8:10:00 AM EST,[facility], 153, cm, 07/14/24 9:08:00 EDT, Height, 94.3, kg, 06/22/24 15:53:00 EDT, Dry Weight Start Date: 07/24/24 Status: Ordered Quantity: 90.0 Unit: tablet Repeat number: 1 sertraline 100 mg oral tablet 2 tablet, By Mouth, Daily, # 180 tablet, 1 Refills, Maintenance, 05/08/24 11:34:00 AM EDT, [facility], 153, cm, 01/23/24 16:32:00 EDT, Height, 94.3, kg, 11/22/23 9:43:00 EDT, Dry Weight Start Date: 05/08/24 Status: Ordered Quantity: 180.0 Unit: tablet Repeat number: 2 Synthroid 0.05 mg oral tablet 1 tablet, By Mouth, Daily in AM, DOSE INCREASE (THYROID STIMULATING HORMONE., # 90 tablet, 1 Refills, Maintenance, 07/24/24 8:10:00 AM EST, [facility], 153, cm, 07/14/24 9:08:00 EDT, Height, 94.3, kg, 06/22/24 15:53:00 EDT, Dry Weight Start Date: 07/24/24 Status: Ordered Quantity: 90.0 Unit: tablet Repeat number: 1 Vitamin D2 2000 intl units oral capsule 1 capsule = 50 mcg, By Mouth, Daily, with food, # 90 capsule, 0 Refills, Maintenance, 11/28/23 2:06:00 PM EDT, Capsule, [facility][id number], Partial fill upon patient request if the [...] - Primary Care Member Role: PCP Address: [address] [place] [address] Adult & Pediatric Medicine [address] Telecom: Care Team Related Persons Name: NKECHI TAYLOR Name: MENDEZ PEREZ Insurance Providers Guarantor name: SHEREE PEREZ Health Plan Information #: 1 Payer: HMO BLUE IN NETWORK Member Number: NA Policy Number: NA Group Number: NA
[2024-09-13 13:08] LABS: Influenza A PCR NEGATIVE (Negative); Influenza B PCR NEGATIVE (Negative); Resp Syncy Virus RNA Qual PCR NEGATIVE (Negative); SARS COV2 PCR INHOUSE NEGATIVE (Negative)
[2024-09-13 14:52] LABS: Troponin-I High Sensitivity < 2.7 ng/L (<3.5-17.0)
[2024-09-13] MEDS: Ketorolac Tromethamine 15 MG/ML VIAL IVPUSH (15:14)
[2024-09-13] MEDS: iohexoL 350 MG/ML 100 ML INFUS..BTL IV (16:27)
--- NOTE | 2024-09-13 17:23 | MHC.EDTECH ---
Patient went for ambulation trial ,Patient 02 sat started at 94 % standing ,while Patient walking sat went up to 96 % RN aware .
[2024-09-13] MEDS: Doxycycline Hyclate 100 MG in 0.9 % Sodium Chloride 250 ML 166.67 MG IV (17:39)
[2024-09-13] MEDS: methylPREDNISolone Sod Succ 125 MG/2 ML VIAL IVPUSH (17:40)
[2024-09-13] MEDS: Acetaminophen 325 MG TABLET 975 MG PO (17:40)
[2024-09-13 19:31] LABS: Appearance Urine Clear; Color Urine Dark Yellow; Glucose Urine UA Negative (Negative); Leukocyte Esterase Urine Negative (Negative); Nitrite Urine Negative (Negative); Specific Gravity - Urine >= 1.030 (1.005-1.025); UMIC TRIGGER UACC YES; Urine Blood Large (3+) (Negative); Urine Ketones 15 mg/dL (Negative); Urine Protein 100 (2+) mg/dL (Neg-Trace)
[2024-09-13] MEDS: Azithromycin 500 MG in 0.9 % Sodium Chloride 250 ML 125 MG IV (19:32)
[2024-09-13 19:54] LABS: Transitional Epi Cells Urine Present; WBC Urine 0-5 /HPF (0-5)
[2024-09-13 19:55] LABS: Bacteria Urine Trace (None Seen); Hyaline Casts Urine 0-2 /LPF (0-2)
== END 2024-09-13 21:40 | disposition home or self-care (01) ==
PROVIDERS: Emergency Medicine; Emergency Provider Emergency Medicine; PCP Internal Medicine Sports Medicine
DX: J18.9 Pneumonia, unspecified organism (principal); R07.89 Other chest pain; R11.2 Nausea with vomiting, unspecified; M54.6 Pain in thoracic spine; I10 Essential (primary) hypertension; R05.9 Cough, unspecified; R06.02 Shortness of breath; Z03.818 Encounter for observation for suspected exposure to other biological agents ruled out; Z79.899 Other long term (current) drug therapy
CPT/HCPCS: 0241U; 36415; 71045; 71260; 80048; 80076; 81001; 83690; 83735; 83880; 84484; 85025; 85610; 93005; 96365; 96366; 96367; 96375; 99285; J0456; J1885; J2919; Q9967

== ENCOUNTER → 2024-09-13 11:50 | Outpatient (BNV) | payer BC, SELFPAY | PROVIDERS: PCP Internal Medicine Sports Medicine; Visit Provider Internal Medicine Cardiovascular Disease | DX: R94.31 Abnormal electrocardiogram [ECG] [EKG] (principal) | CPT/HCPCS: 93010 ==

== ENCOUNTER → 2024-09-13 11:59 | Outpatient (BNV) | payer BC, SELFPAY | PROVIDERS: PCP Internal Medicine Sports Medicine; Visit Provider Radiology Diagnostic Radiology | DX: J18.9 Pneumonia, unspecified organism (principal); R07.9 Chest pain, unspecified | CPT/HCPCS: 71045; 71260 ==